=== PATIENT | female | born 1950 | race Caucasian/White ===

== ENCOUNTER 2018-06-22 12:28 | Inpatient (IN) ==
[2018-06-22 13:43] LABS: Baso # (Auto) 0.1 th/mm3 (0.0-0.2); Baso % (Auto) 2.9 % (0.0-2.0); Eos # (Auto) 0.3 th/mm3 (0.0-0.4); Hematocrit 40.4 % (35.0-46.0); Hemoglobin 13.2 gm/dL (11.6-15.3); Lymph # (Auto) 1.4 th/mm3 (1.0-4.8); Lymph % (Auto) 26.6 % (9.0-44.0); Mean Corpuscular HGB Conc 32.7 % (32.0-36.0); Mean Corpuscular Volume 79.6 fL (80.0-100.0); Mono # (Auto) 0.3 th/mm3 (0.0-0.9); Mono % (Auto) 5.4 % (0.0-8.0); Neut # (Auto) 3.1 th/mm3 (1.8-7.7); Neut % (Auto) 60.1 % (16.0-70.0); Platelet Count 252 th/mm3 (150-450); Red Blood Count 5.08 mil/mm3 (4.00-5.30); Red Cell Distribution Width 16.5 % (11.6-17.2); White Blood Count 5.1 th/mm3 (4.0-11.0)
[2018-06-22 14:02] LABS: Alanine Aminotransferase 22 U/L (10-53); Albumin 3.9 g/dL (3.4-5.0); Anion Gap 3 meq/L (5-15); Aspartate Aminotransferase 12 U/L (15-37); Blood Urea Nitrogen 14 mg/dL (7-18); Calcium 9.1 mg/dL (8.5-10.1); Carbon Dioxide 27.2 meq/L (21.0-32.0); Chloride 112 meq/L (98-107); Glomerular Filtration Rate 57 mL/min (>89); Glucose,Random 91 mg/dL (74-106); Potassium 4.3 meq/L (3.5-5.1); Sodium 142 meq/L (136-145)
[2018-06-22 14:03] LABS: Alkaline Phosphatase 106 U/L (45-117); Total Protein 7.7 g/dL (6.4-8.2)
--- NOTE | 2018-06-22 16:45 | ED ---
HPI General Chief Complaint: Psychiatric Symptoms Stated Complaint: Psych Screen Time Seen by Provider: 06/22/18 14:38 Source: patient Mode of arrival: ambulatory Limitations: no limitations History of Present Illness HPI Narrative: 67-year-old white female who presents emergency department on a voluntary basis at the recommendation of Dr. Mercer the psychiatrist. Patient has a history of schizoaffective disorder, obesity. Patient had contacted Dr. Mercer by phone and had advised him that she was having increased auditory and visual hallucination was becoming increasingly paranoid. She states that she has no intention on hurting herself or hurting anyone but has had intrusive thoughts telling her that she heard hurt herself. Patient states that she does have problems sleeping and concentrating due to the voices. She denies any toxic ingestions. She denies any recent illness or injury. Related Data Home Medications Medication Instructions Recorded Confirmed escitalopram oxalate [Lexapro] 10 mg PO DAILY 06/23/18 06/23/18 quetiapine [Seroquel] 300 mg PO HS 06/23/18 06/23/18 Allergies Allergy/AdvReac Type Severity Reaction Status Date / Time haloperidol Allergy Severe Unverified 07/10/17 13:52 Review of Systems ROS Unobtainable All other systems reviewed negative except as stated in [facility]PI [facility] Medical History Medical History Schizoaffective disorder (Acute) Anxiety (Acute) Depression (Acute) Social History Social History Substance History: No History of Abuse Second Hand Smoke Exposure: No Smoking Status: Never smoker How Often Do You Have a Drink Containing Alcohol: Never Recent Travel in [facility] within the Last 8 Weeks: No Recent Out of Country Travel within the Last 8 Weeks: No Exam Narrative Exam Narrative: GENERAL: Well-nourished, well-developed patient. SKIN: Warm and dry. HEAD: Normocephalic and atraumatic. EYES: No scleral icterus. No injection or drainage. ENT: No nasal drainage noted. Mucous membranes pink. Airway patent. NECK: Supple, trachea midline. Moves head freely without obvious discomfort. CARDIOVASCULAR: Regular rate and rhythm without murmurs, gallops, or rubs. RESPIRATORY: Breath sounds equal bilaterally. No accessory muscle use. GASTROINTESTINAL: Abdomen soft, non-tender, nondistended. EXTREMITIES: No cyanosis or edema. BACK: Nontender without obvious deformity. No CVA tenderness. Patient has a mobile nontender what appears to be lipoma to her right mid back. NEURO: Patient is alert and oriented. no sensorimotor deficits. Nonfocal. Normal speech. PSYCH: No delusions. Positive auditory and visual hallucinations. Course Initial Documented Vital Signs Temperature 97.7 F 06/22/18 12:32 Pulse Rate 78 06/22/18 12:32 Respiratory Rate 17 06/22/18 12:32 Blood Pressure 170/81 H 06/22/18 12:32 Pulse Oximetry 97 06/22/18 12:32 Last Documented Vital Signs Temperature 98.1 F 06/23/18 18:04 Pulse Rate 65 06/23/18 18:04 Respiratory Rate 17 06/23/18 18:04 Blood Pressure 156/73 H 06/23/18 17:55 Pulse Oximetry 94 L 06/23/18 18:04 Medical Decision Making MDM Narrative Medical decision making narrative: Routine laboratory tests have been sent for medical clearance. Patient is resting comfortable in examination room. Patient has been medically cleared. Differential Diagnosis Differential Diagnosis: MDM: High Differential diagnoses: Schizophrenia, schizoaffective disorder, bipolar, anxiety, depression, adjustment reaction, mood disorder NOS, ODD, depressive disorder NOS, psychosis NOS, substance induced mood disorder, infection, electrolyte abnormality, malingering. Mental health screening discussed with the patient. Psychiatric screen ordered. Lab Data Result diagrams: 06/22/18 13:28 06/22/18 13:28 Lab Results 06/22/18 06/22/18 06/22/18 Range/Units 13:28 13:28 18:05 WBC 5.1 (4.0-11.0) th/mm3 RBC 5.08 (4.00-5.30) mil/mm3 Hgb 13.2 (11.6-15.3) gm/dL Hct 40.4 (35.0-46.0) % MCV 79.6 L (80.0-100.0) fL MCH 26.0 L (27.0-34.0) pg MCHC 32.7 (32.0-36.0) % RDW 16.5 (11.6-17.2) % Plt Count 252 (150-450) th/mm3 MPV 8.0 (7.0-11.0) fL Neut % (Auto) 60.1 (16.0-70.0) % Lymph % (Auto) 26.6 (9.0-44.0) % [place] % (Auto) 5.4 (0.0-8.0) % Eos % (Auto) 5.0 H (0.0-4.0) % Baso % (Auto) 2.9 H (0.0-2.0) % Neut # (Auto) 3.1 (1.8-7.7) th/mm3 Lymph # (Auto) 1.4 (1.0-4.8) th/mm3 [place] # (Auto) 0.3 (0.0-0.9) th/mm3 Eos # (Auto) 0.3 (0.0-0.4) th/mm3 Baso # (Auto) 0.1 (0.0-0.2) th/mm3 WBC Differential . Differential Comment Auto diff final Sodium 142 (136-145) meq/L Potassium 4.3 (3.5-5.1) meq/L Chloride 112 H (98-107) meq/L Carbon Dioxide 27.2 (21.0-32.0) meq/L Anion Gap 3 L (5-15) meq/L BUN 14 (7-18) mg/dL Creatinine 0.98 (0.50-1.00) mg/dL Estimated GFR 57 L (>89) mL/min Random Glucose 91 (74-106) mg/dL Calcium 9.1 (8.5-10.1) mg/dL Total Bilirubin 0.3 (0.2-1.0) mg/dL AST 12 L (15-37) U/L ALT 22 (10-53) U/L Alkaline Phosphatase 106 (45-117) U/L Total Protein 7.7 (6.4-8.2) g/dL Albumin 3.9 (3.4-5.0) g/dL Urine Opiates Screen Neg (Neg) Ur Barbiturates Screen Neg (Neg) Ur Amphetamines Screen Neg (Neg) U Benzodiazepines Scrn Neg (Neg) Urine Cocaine Screen Neg (Neg) U Cannabinoids Screen Neg (Neg) Serum Alcohol Less than 3 (0-5) mg/dL Discharge Plan Discharge Disposition Patient Disposition: 01 Discharge Home Discharge Order Discharge Orders: Discharge Order (Routine); Ordered 06/23/18 Ordered By: Lonny Smith Discharge Details Diagnosis: Depression Physicians Team ED Provider: Yemi Ramsay ED Midlevel Provider: Lonny Smith Primary Care Provider: Jacob Bishop Attending Provider: Clifford Bobo Status ED Status: Left Department Discharge Information Discharge Date/Time: 06/23/18 17:22
[2018-06-22 19:15] LABS: Amphetamine Screen,Urine Neg (Neg); Barbiturate Screen,Urine Neg (Neg); Cannabinoid Screen,Urine Neg (Neg); Cocaine Screen,Urine Neg (Neg)
[2018-06-22 19:16] LABS: Opiate Screen,Urine Neg (Neg)
--- NOTE | 2018-06-23 10:58 | ED ---
HPI - Psych - General Source: patient Mode of arrival: ambulatory - History of Present Illness complaint: feels depressed, other (hearing command hallucinations and visual hallucinations) Duration: constant History of same: Yes Relieving factors: none Exacerbating factors: none - General Chief Complaint: Psychiatric Symptoms Stated Complaint: Psych Screen Time Seen by Provider: 06/22/18 14:38 - History of Present Illness HPI Narrative: Patient is a 67-year-old , female who comes in on a voluntary basis. She states that she is treated by Dr. Abdullahi at [facility]. She is currently taking Lexapro 10 mg and Seroquel 300 mg. She states she is here because she lives with her of 46 years and he has a lot of medical problems and she does not want him to see her in this condition. She states that she is has been experiencing command hallucinations and the voices are very harsh telling her to hurt others. She is also experienced some visual hallucinations pictures of her past childhood in addition to visions of monsters and visions from horror movies. She states that she feels like she is losing control and she is experiencing, " loss of her being." Chart reviewed and discussed with nursing staff. Patient is in room J- 104 of the emergency department. She is actively crying and is very difficult to console her. She is alert and oriented 4. Fund of knowledge is good. Motor and gait is normal. Remote and recent memory is intact. Insight and judgment is good. She endorses both auditory and visual hallucinations. She states that these hallucinations have been present in her life for the past 20 years but recently have gotten a lot worse and interfering with her quality of life. She has been under the care of psychiatry and taking Lexapro and Seroquel. She states that she only takes the Lexapro intermittently when she is feeling sad. Medical/surgical history: Patient has no allergies. Surgery on her bladder for small tumors that were removed. States no other medical history. 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 She had 4 children. Two twin girls who are 45 years old one lives [facility] and the other one lives in [place]. She has a son who is 42 who lives in [place]. Her and her lost a child at the age of 22 years old. Patient has a very good relationship with all of her children. 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 She graduated from high school and completed an associates degree in arts. 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 She enjoys baking, sewing, yard work and animals. Patient is at moderate risk for decompensation. She has agreed to a voluntary admission for assessment and medication management. Dx: Schizoaffective, Schizophrenia type (Tiny Ruiz) - Related Data Home Medications Medication Instructions Recorded Confirmed escitalopram oxalate [Lexapro] 10 mg PO DAILY 06/23/18 06/23/18 quetiapine [Seroquel] 300 mg PO HS 06/23/18 06/23/18 Allergies Allergy/AdvReac Type Severity Reaction Status Date / Time haloperidol Allergy Severe Unverified 07/10/17 13:52 Review of Systems All other systems reviewed negative except as stated in HPI [facility] - History History Provided By: Patient - Medical History Medical History: Medical History (Last Updated 06/22/18 @ 18:36 by Jazmin Casey RN) Schizoaffective disorder (Acute) Anxiety (Acute) Depression (Acute) - Tobacco History Second Hand Smoke Exposure: No Smoking Status: Never smoker - Alcohol History How Often Do You Have a Drink Containing Alcohol: Never - Substance Use History Substance History: No History of Abuse - Travel History Recent Travel in the [facility] Within the Last 8 Weeks: No Recent Travel Out of the Country Within the Last 8 Weeks: No - Immunization History Tetanus Immunization: Unsure Hx Influenza Vaccine This Season: No Psychiatric History - Psychiatric History Psychiatric Treatment History: History of Psychiatric Treatment, History of Hospitalization in a Psychiatric Facility - Psychiatric History Patient is under the care of Dr. Abdullahi at [facility]. She has had a long history of schizoaffective disorder. She presents today with active auditory and visual hallucinations. (Tiny Ruiz) Physical Exam - General Limitations: no limitations General appearance: alert - Head Head exam: atraumatic - Eye Eye exam: Present: normal appearance - ENT ENT exam: Present: normal exam - Neck Neck exam: Present: normal inspection Mental Status Examination Appearance: Appropriate, Disheveled (has not washed her hair in days ) Consciousness: Alert Orientation: x4 (crying, inconsolable ) Speech: Unremarkable Language: Adequate Fund of Knowledge: Adequate Attention and Concentration: Adequate Memory: Unremarkable Mood: Sad Affect: Flat, Blunt Thought Process & Associations: Intact Thought Content: Hallucinations Hallucination Type: Auditory, Visual Delusion Type: None Suicidal Ideation: No Suicidal Plan: No Suicidal Intention: No Homicidal Ideation: No Homicidal Plan: No Homicidal Intention: No Insight: Adequate Judgment: Adequate Initial Documented Vital Signs Temperature 97.7 F 06/22/18 12:32 Pulse Rate 78 06/22/18 12:32 Respiratory Rate 17 06/22/18 12:32 Blood Pressure 170/81 H 06/22/18 12:32 Pulse Oximetry 97 06/22/18 12:32 Last Documented Vital Signs Temperature 98.2 F 06/22/18 23:28 Pulse Rate 66 06/22/18 23:28 Respiratory Rate 17 06/22/18 23:28 Blood Pressure 167/81 H 06/22/18 23:28 Pulse Oximetry 97 06/22/18 23:28 MDM - Psych - Diagnosis (1) Schizo-affective schizophrenia Status: Acute - Medical Records Attestation: I reviewed the patient's medical records. - Lab Data Attestation: I reviewed the patient's lab results. Result diagrams: 06/22/18 13:28 06/22/18 13:28 - MDM Narrative Medical decision making narrative: Patient is a 67-year-old female who comes into the emergency department on a voluntary basis due to increased auditory and visual hallucinations. She states that she is under the care of Dr. Abdullahi at [facility] and prescribed Lexapro and Seroquel. She lives with her of 46 years and he has a lot of medical issues. She has many concerns about her current state while at home with her . She is crying inconsolably and elicits increase in auditory hallucinations. She states that the voices are telling her to do evil things and they will not stop. She also is experiencing visual hallucinations including pictures of her past and visions from a horror movie. She expresses concern about her dose of Seroquel because she sleeps excessively. Patient is moderate risk for decompensation. Will admit patient on a voluntary basis for further assessment and medication management. (Tiny Ruiz) - Lab Data Lab Results 06/22/18 06/22/18 06/22/18 Range/Units 13:28 13:28 18:05 WBC 5.1 (4.0-11.0) th/mm3 RBC 5.08 (4.00-5.30) mil/mm3 Hgb 13.2 (11.6-15.3) gm/dL Hct 40.4 (35.0-46.0) % MCV 79.6 L (80.0-100.0) fL MCH 26.0 L (27.0-34.0) pg MCHC 32.7 (32.0-36.0) % RDW 16.5 (11.6-17.2) % Plt Count 252 (150-450) th/mm3 MPV 8.0 (7.0-11.0) fL Neut % (Auto) 60.1 (16.0-70.0) % Lymph % (Auto) 26.6 (9.0-44.0) % [place] % (Auto) 5.4 (0.0-8.0) % Eos % (Auto) 5.0 H (0.0-4.0) % Baso % (Auto) 2.9 H (0.0-2.0) % Neut # (Auto) 3.1 (1.8-7.7) th/mm3 Lymph # (Auto) 1.4 (1.0-4.8) th/mm3 [place] # (Auto) 0.3 (0.0-0.9) th/mm3 Eos # (Auto) 0.3 (0.0-0.4) th/mm3 Baso # (Auto) 0.1 (0.0-0.2) th/mm3 WBC Differential . Differential Comment Auto diff final Sodium 142 (136-145) meq/L Potassium 4.3 (3.5-5.1) meq/L Chloride 112 H (98-107) meq/L Carbon Dioxide 27.2 (21.0-32.0) meq/L Anion Gap 3 L (5-15) meq/L BUN 14 (7-18) mg/dL Creatinine 0.98 (0.50-1.00) mg/dL Estimated GFR 57 L (>89) mL/min Random Glucose 91 (74-106) mg/dL Calcium 9.1 (8.5-10.1) mg/dL Total Bilirubin 0.3 (0.2-1.0) mg/dL AST 12 L (15-37) U/L ALT 22 (10-53) U/L Alkaline Phosphatase 106 (45-117) U/L Total Protein 7.7 (6.4-8.2) g/dL Albumin 3.9 (3.4-5.0) g/dL Urine Opiates Screen Neg (Neg) Ur Barbiturates Screen Neg (Neg) Ur Amphetamines Screen Neg (Neg) U Benzodiazepines Scrn Neg (Neg) Urine Cocaine Screen Neg (Neg) U Cannabinoids Screen Neg (Neg) Serum Alcohol Less than 3 (0-5) mg/dL
[2018-06-23] MEDS ORDERED: Aluminum/Magnesium/Simethacone Susp 30 ML UDC PO PRN (11:00)
[2018-06-23] MEDS ORDERED: Acetaminophen 325 MG Tablet PO PRN (11:00)
[2018-06-23] MEDS: Senna/Docusate Sodium 8.6/50 MG Tablet PO SCH (22:05)
[2018-06-24] MEDS: Senna/Docusate Sodium 8.6/50 MG Tablet PO SCH ×2 (09:29→21:27)
[2018-06-24 11:23] LABS: Calcium 9.1 mg/dL (8.5-10.1); Carbon Dioxide 28.2 meq/L (21.0-32.0); Potassium 3.8 meq/L (3.5-5.1)
[2018-06-24 11:25] LABS: Chol/HDL Ratio 4.06 Ratio; HDL Cholesterol 48.9 mg/dL (40.0-60.0)
--- NOTE | 2018-06-24 12:09 | P.CONIM ---
History of Present Illness Consult date: 06/24/18 Requesting Physician: Wayne Hansen Reason for Consult: Elevated BP Primary Care Provider: Jacob Bishop MD Family Provider: Jacob Bishop MD History of Present Illness: Mrs. 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 She follows with Dr. Abdullahi at [facility]. She is currently taking Lexapro 10 mg and Seroquel 300 mg. Pt was admitted to inpatient psychiatry under voluntary basis for visual and auditory hallucinations. This has reportedly been an issues intermittently for several years but it has become more of an issue recently. This is being managed by Psychiatry. The [facility] Hospitalist team was consulted to help with medical management of the pts BP. Her BP has fluctuated since admission yesterday with systolic as high as 170's. Her BP readings this morning were stable at 122/66. Pt has not required BP medications in the past. Past Medical History Schizoaffective d/o Papillary urothelial carcinoma bladder Past Surgical History Transurethral resection of bladder tumors on 01/09/14 and 03/22/14 Reported Medications Lexapro 10mg daily Seroquel 300mg qhs Family History Noncontributory Social History No reported EtOH or tobacco use Pt lives at home with her Pt has three living children two of which live locally. Review of Systems Constitutional: Denies chills, Denies fever(s), Denies weakness Ears, Nose, Mouth, and Throat: Denies hearing loss, Denies mouth lesions, Denies nasal congestion, Denies sinus pressure Cardiovascular: Denies chest pain, Denies shortness of breath Gastrointestinal: Denies abdominal pain, Denies constipation, Denies loose stools, Denies nausea, Denies vomiting Genitourinary: Denies urinary incontinence, Denies urinary urgency Musculoskeletal: Denies back pain, Denies neck pain Skin/Breast: Denies rash Neurologic: Denies abnormal movements, Denies abnormal speech, Denies tingling/ numbness/burning sensations Psychiatric: Reports depression, Reports hearing things others do not hear, Reports seeing things others do not see PMFSH - History History Provided By: Patient - Medical History Medical History: Medical History (Last Reviewed 06/27/18 @ 00:53 by Yemi Ramsay MD) Schizoaffective disorder (Chronic) Anxiety (Acute) Depression (Acute) - Tobacco History Second Hand Smoke Exposure: No Tobacco Use In Past 30 Days: No Smoking Status: Never smoker - Alcohol History How Often Do You Have a Drink Containing Alcohol: Never - Substance Use History Substance History: No History of Abuse - Travel History Recent Travel in the [place] Within the Last 8 Weeks: No Recent Travel Out of the Country Within the Last 8 Weeks: No - Immunization History Tetanus Immunization: Unsure Hx Influenza Vaccine This Season: No Medications and Allergies Allergies Allergy/AdvReac Type Severity Reaction Status Date / Time haloperidol Allergy Severe Extrapyramidal Verified 06/26/18 07:09 Syndrome Home Medications Medication Instructions Recorded Confirmed Type quetiapine 300 mg PO HS 06/27/18 06/27/18 History Active Medications: Active Medications Acetaminophen (Tylenol) 650 mg PO Q4H PRN PRN Reason: Pain 1-5 or Temp >101F Al Hydrox/Mg Hydrox/Simethicone (Mag-Al Plus Susp Liq) 30 ml PO Q6H PRN PRN Reason: DYSPEPSIA Diphenhydramine HCl (Benadryl) 50 mg PO HS PRN PRN Reason: INSOMNIA Last Admin: 06/23/18 22:03 Dose: 50 mg Quetiapine Fumarate (Seroquel) 200 mg PO HS [facility] Last Admin: 06/23/18 22:04 Dose: 200 mg Senna/Docusate Sodium (Reanna-Colace) 1 tab PO BID [facility] Last Admin: 06/24/18 09:29 Dose: Not Given Exam Vital signs: Vital Signs 06/23/18 11:58 06/23/18 17:00 06/23/18 17:55 Temperature 97.6 F 98.1 F Pulse Rate 66 65 96 H Respiratory Rate 16 17 Blood Pressure 140/66 170/82 H 156/73 H Pulse Oximetry 97 94 L 06/23/18 18:04 06/24/18 05:57 Temperature 98.1 F 97.7 F Pulse Rate 65 73 Respiratory Rate 17 16 Blood Pressure 122/56 L Pulse Oximetry 94 L 95 Intake & Output 06/23/18 06/24/18 06/24/18 18:59 06:59 18:59 Weight 99.7 kg 103.9 kg Other: Date of Last Bowel Movement 06/21/18 06/23/18 Weight On Admission 99.7 kg Narrative: GENERAL: NAD, awake and alert SKIN: Warm and dry. HEENT: Atraumatic. Normocephalic. Pupils equal and round. No scleral icterus. No injection or drainage. No nasal bleeding or discharge. Mucous membranes pink and moist. NECK: Trachea midline. CARDIO: Regular RESP: No accessory muscle use. Clear to auscultation. Breath sounds equal bilaterally. ABD: +BS, soft, non-tender, nondistended. EXT: Extremities without clubbing, cyanosis, or edema. No obvious deformities. NEURO: Awake and alert. No obvious cranial nerve deficits. Motor grossly within normal limits. Five out of 5 muscle strength in the arms and legs. Normal speech. Results - Labs CBC & Chem 7: 06/22/18 13:28 06/25/18 06:42 Labs: Laboratory Results - last 24 hr 06/24/18 10:30 Sodium 143 Potassium 3.8 Chloride 110 H Carbon Dioxide 28.2 Anion Gap 5 BUN 13 Creatinine 0.99 Estimated GFR 56 L Random Glucose 86 Calcium 9.1 Triglycerides 180 H Cholesterol 199 LDL Cholesterol, Calc 114 H HDL Cholesterol 48.9 Cholesterol/HDL Ratio 4.06 Assessment and Plan - Assessment (1) Schizoaffective disorder Code(s): F25.9 - Schizoaffective disorder, unspecified Status: Chronic Plan: Schizoaffective disorder Visual and auditory hallucinations - Pt has been admitted to inpatient psychiatry for management of the above stated issues - Management per Psych Elevated Blood pressure - Pt without any hx of HTN and her BP has fluctuated somewhat during this stay so far, likely situation, related to anxiety and heightened emotions. - Will continue to monitor BP trend - Add clonidine PRN (2) Elevated blood pressure, situational Code(s): R03.0 - Elevated blood-pressure reading, without diagnosis of hypertension Status: Acute - Attending Attestation Patient examined. Assessment and plan formulated with Sofia Marinelli PA-C. I agree with the above. (1) Schizoaffective disorder Qualifiers: Schizoaffective disorder type: bipolar Qualified Code(s): F25.0 - Schizoaffective disorder, bipolar type
[2018-06-24] MEDS ORDERED: Bisacodyl 10 MG Supp RECTAL PRN ×2 (13:21→13:30)
[2018-06-24] MEDS ORDERED: Aluminum/Magnesium/Simethacone Susp 30 ML UDC PO PRN (13:30)
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
[2018-06-24 16:32] LABS: Hemoglobin A1c 5.5 % (4.3-6.0)
[2018-06-24] MEDS ORDERED: Senna/Docusate Sodium 8.6/50 MG Tablet PO SCH (21:00)
[2018-06-25 07:50] LABS: Carbon Dioxide 26.6 meq/L (21.0-32.0); Potassium 3.7 meq/L (3.5-5.1)
[2018-06-25 07:53] LABS: Chol/HDL Ratio 3.79 Ratio; HDL Cholesterol 47.7 mg/dL (40.0-60.0)
[2018-06-25] MEDS: Senna/Docusate Sodium 8.6/50 MG Tablet PO SCH ×2 (10:43→21:13)
--- NOTE | 2018-06-25 16:00 | P.PNPSY ---
Subjective Remarks: Patient seen in her room with nurse, chart reviewed, patient said she slept better last night. Voices persist but the frequency and intensity are somewhat lower. We will increase a.m. Resporal 2 mg continue 4 PM and 1 mg Review of Systems All other systems reviewed negative except as stated in HPI Mental Status Examination Appearance: Appropriate Consciousness: Alert Orientation: x4 (crying, inconsolable ) Motor Activity: Normal gait Speech: Unremarkable Language: Adequate Fund of Knowledge: Adequate Attention and Concentration: Adequate Memory: Unremarkable Mood: Sad Affect: Other (Decreased range and intensity) Thought Process & Associations: Intact Thought Content: Hallucinations Hallucination Type: Auditory, Visual Delusion Type: None Suicidal Ideation: No Suicidal Plan: No Suicidal Intention: No Homicidal Ideation: No Homicidal Plan: No Homicidal Intention: No Insight: Adequate Judgment: Adequate Assessment and Plan - Assessment (1) Schizoaffective disorder Code(s): F25.9 - Schizoaffective disorder, unspecified Status: Chronic - Plan Plan: Patient continues psychotic though improving the voices are somewhat decreased in range and intensity. She medication adjustment above Justification for Continued Inpatient Stay: At this time patient would decompensate a place to a lower level of care Discharge Planning: Possible discharge tomorrow to Request Healthcare Surrogate/Guardian Advocate?: No (1) Schizoaffective disorder Qualifiers: Schizoaffective disorder type: depressive Qualified Code(s): F25.1 - Schizoaffective disorder, depressive type
[2018-06-25 18:21] LABS: Hemoglobin A1c 5.4 % (4.3-6.0)
[2018-06-26 06:18] VITALS: BP 149/63; PULSE 67; RESP 15; TEMP 98.1; O2SAT 98
[2018-06-26] MEDS: Senna/Docusate Sodium 8.6/50 MG Tablet PO SCH ×2 (09:34→09:36)
--- NOTE | 2018-06-26 12:35 | P.DSPSY ---
Psychiatry Discharge Summary Inpatient Psychiatric care?: Yes Advance Directives: No Mental Health Advance Directive: No Health Care Proxy: No - Admission Admission Date: June 23, 2018 10:59 - Admission Diagnosis (1) Schizoaffective disorder Code(s): F25.9 - Schizoaffective disorder, unspecified Brief History: Patient is a 67-year-old white female comes here voluntarily history of increased auditory and visual hallucinations becoming more more threatening intrusive both visits intensity and frequency. Leading to vague suicidal ideation. Patient denies any alcohol or drug use related to this. Patient does give a history of mental illness going back a number of years the of her grand mother and of a young child. That is 30+ years ago she has had 4-6 psychiatric hospitalizations since then. She is a patient through [facility]. It was being prescribed Seroquel 300 mg at bedtime and Lexapro 10 mg daily and extended period of time. She stopped Lexapro about a month ago after reading things in the Internet and seeing loose story about Lexapro. She complained of increased sedation with the Seroquel was in the ED yesterday it was decreased to 200 mg at at bedtime. 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 She also has recently had the of her pet dog and cat leaving her with 3 cats and 1 dog. Patient does deny any intent to kill herself or plan to kill herself. This time patient meets criteria for inpatient psychiatric hospitalization on a voluntary basis steps also noted some hypertension with this lady will have a hospitalist consult will us. We will continue her Seroquel at 200 mg at bedtime we will add Resporal 1 mg 8 AM and 4 PM. Hopeless be fairly short stay and can return her to her family follow-up [facility] outpatient Tobacco Use In Past 30 Days: No How Often Do You Have a Drink Containing Alcohol: Never Hospital Course: Patient's hospital course was uneventful, she showed compliance with medication from day 1. Her auditory hallucinations have gradually diminished until mother are quite faint. Patient denies suicidality homicidality voices or visions. Feels her depression is also lifting. She is excited about going home that she can go with her for family reunion this weekend. Patient able contract to do no harm patient does have appropriate follow-up psychiatrically through [facility] be discharged today with Rx 1 month - Discharge Discharge Date: 06/26/18 - Discharge Diagnosis (1) Schizoaffective disorder Code(s): F25.9 - Schizoaffective disorder, unspecified Status: Chronic Discharge Disposition: Home - Discharge Instructions Discharge Diet: Regular Diet Activities You Can Perform: Regular- No Restrictions - Discharge Time > 30 minutes Mental Status Examination Appearance: Appropriate Consciousness: Alert Orientation: x4 (crying, inconsolable ) Motor Activity: Normal gait Speech: Unremarkable Language: Adequate Fund of Knowledge: Adequate Attention and Concentration: Adequate Memory: Unremarkable Mood: Sad Affect: Other (Decreased range and intensity) Thought Process & Associations: Intact Thought Content: Hallucinations Hallucination Type: Auditory, Visual Delusion Type: None Suicidal Ideation: No Suicidal Plan: No Suicidal Intention: No Homicidal Ideation: No Homicidal Plan: No Homicidal Intention: No Insight: Adequate Judgment: Adequate Discharge/Advance Care Plan - Results Vital Signs: Last Vital Signs Temp 98.1 F 06/26/18 06:17 Pulse 67 06/26/18 06:17 Resp 15 06/26/18 06:17 BP 149/63 H 06/26/18 06:17 Pulse Ox 98 06/26/18 06:17 Lab Results: Abnormal Lab Results 06/25/18 06:42 Hemoglobin A1c 5.4 Laboratory Results Hemoglobin A1c 5.4 % (4.3-6.0) 06/25/18 06:42 Triglycerides 130 mg/dL (42-150) 06/25/18 06:42 Cholesterol 181 mg/dL (120-200) 06/25/18 06:42 LDL Cholesterol, Calc 107 mg/dL (0-99) H 06/25/18 06:42 HDL Cholesterol 47.7 mg/dL (40.0-60.0) 06/25/18 06:42 Summary of Procedures: None done Pending Results: None - Medications Number of antipsychotic medications at discharge: 1 - Discharge Care Plan Goals to Promote Your Health: * To prevent worsening of your condition and complications * To maintain your health at the optimal level Directions to Meet Your Goals: Take your medications as prescribed Follow your dietary instruction Follow activity as directed Keep your appointments as scheduled Take your immunizations and boosters as scheduled If your symptoms worsen call your PCP, if no PCP go to Urgent Care Center or Emergency Room For 18/06 questions related to your inpatient stay or results of tests pending at discharge, please contact Dr. Wayne Hansen MD at Smoking is Dangerous to Your Health. Avoid second hand smoking (1) Schizoaffective disorder Qualifiers: Schizoaffective disorder type: depressive Qualified Code(s): F25.1 - Schizoaffective disorder, depressive type (1) Schizoaffective disorder Qualifiers: Schizoaffective disorder type: depressive Qualified Code(s): F25.1 - Schizoaffective disorder, depressive type
== END 2018-06-26 15:10 | disposition home or self-care (01) ==
LOC: NEPJ 12:28 → NEDA 06-23 10:59 → H260 06-23 16:39
PROVIDERS: ADMIT Psychiatry & Neurology Psychiatry; ATTEND Psychiatry & Neurology Psychiatry

== ENCOUNTER 2018-06-26 23:42 | Observation (INO) ==
[2018-06-27] MEDS ORDERED: Sod Chloride 0.9% Inj 1,000 ML IV.SIG ONE (00:47)
--- NOTE | 2018-06-27 00:51 | ED ---
HPI General Chief complaint: Psychiatric Symptoms Stated complaint: medcial Time Seen by Provider: 06/27/18 00:47 Source: patient and family Mode of arrival: ambulatory Limitations: no limitations History of Present Illness HPI narrative: 67-year-old female patient with history of schizophrenia, bipolar disorder, admitted to psychiatry and released yesterday, presents back to the ER today with because she has been hearing voices, is not able to sleep, and had taken an overdose of her quiet pain to try to sleep. She states that she took 3 tablets of her quiets pain 300 mg tablets. She states that she is only supposed to take 2. She states that she is now having some intermittent chest discomfort, palpitations, hearing voices. Related Data Home Medications Medication Instructions Recorded Confirmed quetiapine 300 mg PO HS 06/27/18 06/27/18 Previous Rx's Medication Instructions Recorded escitalopram oxalate [Lexapro] 10 mg PO DAILY #30 tab 06/26/18 quetiapine 200 mg PO HS #60 tab 06/26/18 risperidone [Risperdal] 2 mg PO DAILY@ #60 tab 06/26/18 Allergies Allergy/AdvReac Type Severity Reaction Status Date / Time haloperidol Allergy Severe Extrapyramidal Verified 06/26/18 07:09 Syndrome Review of Systems Except as stated in HPI: all other systems reviewed are negative [facility] Medical History Medical History Schizoaffective disorder (Chronic) Anxiety (Acute) Depression (Acute) Surgical History Surgical History No history of previous surgery (Acute) Social History Social History Substance History: No History of Abuse Second Hand Smoke Exposure: No Smoking Status: Never smoker How Often Do You Have a Drink Containing Alcohol: Never Recent Travel in [facility] within the Last 8 Weeks: No Recent Out of Country Travel within the Last 8 Weeks: No Immunization History Tetanus Immunization: Never Vaccinated Hx Influenza Vaccine This Season: No Exam Narrative Exam Narrative: GENERAL: Well-developed middle-age female patient currently and mild to moderate distress. Awake and oriented 3. SKIN: Focused skin assessment warm/dry. HEAD: Atraumatic. Normocephalic. EYES: Pupils equal and round. No scleral icterus. No injection or drainage. ENT: No nasal bleeding or discharge. Mucous membranes pink and moist. NECK: Trachea midline. No JVD. CARDIOVASCULAR: Regular rate and rhythm. No murmur appreciated. RESPIRATORY: No accessory muscle use. Clear to auscultation. Breath sounds equal bilaterally. GASTROINTESTINAL: Abdomen soft, non-tender, nondistended. Hepatic and splenic margins not palpable. MUSCULOSKELETAL: No obvious deformities. No clubbing. No cyanosis. No edema. NEUROLOGICAL: Awake and alert. No obvious cranial nerve deficits. Motor grossly within normal limits. Normal speech. PSYCHIATRIC: Appropriate mood and flat affect; insight and judgment poor. Course Hospital Course: Patient's EKG shows elongated QTc. It is uncertain whether she has had this before, I do not have comparison EKGs. Patient complains of chest discomfort, and apparently is symptomatic from the overdose. Case had been discussed with poison control who recommends every 2 EKGs for further evaluation and observation. Lab work was otherwise unremarkable. We did not see any signs of coingestions. My plan would be to admit the patient for further treatment. Case was discussed with Dr. Carmichael who states the patient can be admitted to Dr. Villalobos service. Initial Documented Vital Signs Temperature 97.3 F L 06/27/18 00:31 Pulse Rate 103 H 06/27/18 00:31 Respiratory Rate 18 06/27/18 00:31 Blood Pressure 157/85 H 06/27/18 00:31 Pulse Oximetry 97 06/27/18 00:31 Last Documented Vital Signs Temperature 97.3 F L 06/27/18 00:31 Pulse Rate 98 H 06/27/18 00:59 Respiratory Rate 18 06/27/18 00:58 Blood Pressure 174/79 H 06/27/18 00:58 Pulse Oximetry 96 06/27/18 00:59 Medical Decision Making Differential Diagnosis Differential Diagnosis: Worsening psychosis versus medication side effect versus dysrhythmias versus electrolyte abnormalities Lab Data Result diagrams: 06/27/18 00:50 06/27/18 00:50 Lab Results 06/27/18 06/27/18 06/27/18 Range/Units 00:50 00:50 00:50 WBC 8.1 (4.0-11.0) th/mm3 RBC 5.18 (4.00-5.30) mil/mm3 Hgb 13.6 (11.6-15.3) gm/dL Hct 41.7 (35.0-46.0) % MCV 80.4 (80.0-100.0) fL MCH 26.3 L (27.0-34.0) pg MCHC 32.7 (32.0-36.0) % RDW 16.5 (11.6-17.2) % Plt Count 245 (150-450) th/mm3 MPV 8.3 (7.0-11.0) fL Neut % (Auto) 74.3 H (16.0-70.0) % Lymph % (Auto) 16.9 (9.0-44.0) % [place] % (Auto) 6.0 (0.0-8.0) % Eos % (Auto) 1.8 (0.0-4.0) % Baso % (Auto) 1.0 (0.0-2.0) % Neut # (Auto) 6.0 (1.8-7.7) th/mm3 Lymph # (Auto) 1.4 (1.0-4.8) th/mm3 [place] # (Auto) 0.5 (0.0-0.9) th/mm3 Eos # (Auto) 0.1 (0.0-0.4) th/mm3 Baso # (Auto) 0.1 (0.0-0.2) th/mm3 WBC Differential . Differential Comment Auto diff final Sodium 142 (136-145) meq/L Potassium 3.6 (3.5-5.1) meq/L Chloride 108 H (98-107) meq/L Carbon Dioxide 26.2 (21.0-32.0) meq/L Anion Gap 8 (5-15) meq/L BUN 13 (7-18) mg/dL Creatinine 0.90 (0.50-1.00) mg/dL Estimated GFR 63 L (>89) mL/min Random Glucose 114 H (74-106) mg/dL Calcium 9.4 (8.5-10.1) mg/dL Total Bilirubin 0.3 (0.2-1.0) mg/dL AST 16 (15-37) U/L ALT 22 (10-53) U/L Alkaline Phosphatase 110 (45-117) U/L Troponin I (0.02-0.05) ng/mL Total Protein 8.3 H D (6.4-8.2) g/dL Albumin 4.3 (3.4-5.0) g/dL Salicylates Less than 1.7 L (2.8-20.0) mg/dL Urine Opiates Screen (Neg) Acetaminophen Less than 2.0 L (10.0-30.0) mcg/mL Ur Barbiturates Screen (Neg) Ur Amphetamines Screen (Neg) U Benzodiazepines Scrn (Neg) Urine Cocaine Screen (Neg) U Cannabinoids Screen (Neg) 06/27/18 06/27/18 Range/Units 00:50 01:15 WBC (4.0-11.0) th/mm3 RBC (4.00-5.30) mil/mm3 Hgb (11.6-15.3) gm/dL Hct (35.0-46.0) % MCV (80.0-100.0) fL MCH (27.0-34.0) pg MCHC (32.0-36.0) % RDW (11.6-17.2) % Plt Count (150-450) th/mm3 MPV (7.0-11.0) fL Neut % (Auto) (16.0-70.0) % Lymph % (Auto) (9.0-44.0) % [place] % (Auto) (0.0-8.0) % Eos % (Auto) (0.0-4.0) % Baso % (Auto) (0.0-2.0) % Neut # (Auto) (1.8-7.7) th/mm3 Lymph # (Auto) (1.0-4.8) th/mm3 [place] # (Auto) (0.0-0.9) th/mm3 Eos # (Auto) (0.0-0.4) th/mm3 Baso # (Auto) (0.0-0.2) th/mm3 WBC Differential Differential Comment Sodium (136-145) meq/L Potassium (3.5-5.1) meq/L Chloride (98-107) meq/L Carbon Dioxide (21.0-32.0) meq/L Anion Gap (5-15) meq/L BUN (7-18) mg/dL Creatinine (0.50-1.00) mg/dL Estimated GFR (>89) mL/min Random Glucose (74-106) mg/dL Calcium (8.5-10.1) mg/dL Total Bilirubin (0.2-1.0) mg/dL AST (15-37) U/L ALT (10-53) U/L Alkaline Phosphatase (45-117) U/L Troponin I Less than 0.02 L (0.02-0.05) ng/mL Total Protein (6.4-8.2) g/dL Albumin (3.4-5.0) g/dL Salicylates (2.8-20.0) mg/dL Urine Opiates Screen Neg (Neg) Acetaminophen (10.0-30.0) mcg/mL Ur Barbiturates Screen Neg (Neg) Ur Amphetamines Screen Neg (Neg) U Benzodiazepines Scrn Neg (Neg) Urine Cocaine Screen Neg (Neg) U Cannabinoids Screen Neg (Neg) Discharge Plan Discharge Details Anticipated Discharge Date: 06/27/18 Physicians Team ED Provider: Yemi Ramsay Primary Care Provider: Jacob Bishop Rxs /Orders / Referrals /Forms Prescriptions: No Action quetiapine 300 mg Tablet 300 mg PO HS RF: 0 quetiapine 200 mg Tablet 200 mg PO HS Qty: 60 RF: 0 risperidone [Risperdal] 1 mg Tablet 2 mg PO DAILY@08,16 Qty: 60 RF: 0 escitalopram oxalate [Lexapro] 10 mg Tablet 10 mg PO DAILY Qty: 30 RF: 0 Discharge Interventions Interventions: Vital Signs Last Done: 06/27/18 00:58 Status ED Status: With Doctor
[2018-06-27 00:59] LABS: Baso # (Auto) 0.1 th/mm3 (0.0-0.2); Eos # (Auto) 0.1 th/mm3 (0.0-0.4); Eos % (Auto) 1.8 % (0.0-4.0); Hematocrit 41.7 % (35.0-46.0); Hemoglobin 13.6 gm/dL (11.6-15.3); Lymph # (Auto) 1.4 th/mm3 (1.0-4.8); Lymph % (Auto) 16.9 % (9.0-44.0); Mean Corpuscular HGB Conc 32.7 % (32.0-36.0); Mean Corpuscular Hemoglobin 26.3 pg (27.0-34.0); Mean Corpuscular Volume 80.4 fL (80.0-100.0); Mean Platelet Volume 8.3 fL (7.0-11.0); Mono # (Auto) 0.5 th/mm3 (0.0-0.9); Neut % (Auto) 74.3 % (16.0-70.0); Platelet Count 245 th/mm3 (150-450); Red Blood Count 5.18 mil/mm3 (4.00-5.30); Red Cell Distribution Width 16.5 % (11.6-17.2); White Blood Count 8.1 th/mm3 (4.0-11.0)
[2018-06-27 01:17] LABS: Albumin 4.3 g/dL (3.4-5.0); Anion Gap 8 meq/L (5-15); Aspartate Aminotransferase 16 U/L (15-37); Blood Urea Nitrogen 13 mg/dL (7-18); Calcium 9.4 mg/dL (8.5-10.1); Carbon Dioxide 26.2 meq/L (21.0-32.0); Chloride 108 meq/L (98-107); Glomerular Filtration Rate 63 mL/min (>89); Glucose,Random 114 mg/dL (74-106); Potassium 3.6 meq/L (3.5-5.1); Sodium 142 meq/L (136-145)
[2018-06-27 01:20] LABS: Alanine Aminotransferase 22 U/L (10-53); Alkaline Phosphatase 110 U/L (45-117); Total Protein 8.3 g/dL (6.4-8.2)
[2018-06-27 01:38] LABS: Amphetamine Screen,Urine Neg (Neg); Barbiturate Screen,Urine Neg (Neg); Cannabinoid Screen,Urine Neg (Neg); Cocaine Screen,Urine Neg (Neg); Opiate Screen,Urine Neg (Neg)
--- NOTE | 2018-06-27 09:30 | P.HP ---
<Myranda Machuca W - Last Filed: 06/27/18 12:24> History of Present Illness Primary Care Physician: Jacob Bishop MD History of Present Illness: Mrs. 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 Patient was recent;y admitted to in [facility] from 06/23/18 and discharged 06/26/18. Patient presents back to the ER 06/27/18 with because she has been hearing voices, is not able to sleep, and had taken an overdose of her quiet pain to try to sleep. She states that she took 3 tablets of her Seroquel 300 mg tablets. She states that she is only supposed to take 2. Per patient was having some intermittent chest discomfort on arrival to the ER. Patient now denies chest pain. She reports that she feels much better than when she came into the hospital. Patient reports feeling fatigued but offers no other complaints at this time. Past Medical History Schizoaffective d/o Papillary urothelial carcinoma bladder Past Surgical History Transurethral resection of bladder tumors on 01/09/14 and 03/22/14 Reported Medications Lexapro 10mg daily Seroquel 300mg qhs Family History Noncontributory Social History No reported EtOH or tobacco use Pt lives at home with her Pt has three living children two of which live locally. - Diagnosis (1) Schizoaffective disorder Review of Systems unobtainable due to mental status PMFSH - History History Provided By: Patient, Medical Record - Medical History Medical History: Medical History (Last Reviewed 06/27/18 @ 00:53 by Yemi Ramsay MD) Schizoaffective disorder (Chronic) Anxiety (Acute) Depression (Acute) - Surgical History Surgical History: Surgical History (Last Reviewed 06/27/18 @ 00:53 by Yemi Ramsay MD) No history of previous surgery - Tobacco History Second Hand Smoke Exposure: Yes Smoking Status: Never smoker - Alcohol History How Often Do You Have a Drink Containing Alcohol: Never - Substance Use History Substance History: No History of Abuse - Travel History Recent Travel in the [place] Within the Last 8 Weeks: No Recent Travel Out of the Country Within the Last 8 Weeks: No - Immunization History Tetanus Immunization: Never Vaccinated Hx Influenza Vaccine This Season: No Medications and Allergies Allergies Allergy/AdvReac Type Severity Reaction Status Date / Time haloperidol Allergy Severe Extrapyramidal Verified 06/26/18 07:09 Syndrome Home Medications Medication Instructions Recorded Confirmed Type quetiapine 300 mg PO HS 06/27/18 06/27/18 History Exam Vital signs: Vital Signs 06/27/18 00:31 06/27/18 00:58 06/27/18 00:59 Temperature 97.3 F L Pulse Rate 103 H 97 H 98 H Respiratory Rate 18 18 Blood Pressure 157/85 H 174/79 H Pulse Oximetry 97 95 96 06/27/18 03:36 06/27/18 07:19 Temperature 98.2 F 98.8 F Pulse Rate 89 83 Respiratory Rate 17 18 Blood Pressure 163/74 H 168/82 H Pulse Oximetry 96 97 Intake & Output 06/26/18 06/27/18 06/27/18 18:59 06:59 18:59 Intake Total 1000 / 1000 Balance 1000 / 1000 Weight 104.326 kg Intake: IV 1000 / 1000 NS Inj 1,000 ML @ Wide Open IV. 1000 / 1000 SIG BOLUS ONE Rx#:[id number] Narrative: GENERAL: NAD, awake and alert SKIN: Warm and dry. HEENT: Atraumatic. Normocephalic. Pupils equal and round. No scleral icterus. No injection or drainage. No nasal bleeding or discharge. Mucous membranes pink and moist. NECK: Trachea midline. CARDIO: Regular RESP: No accessory muscle use. Clear to auscultation. Breath sounds equal bilaterally. ABD: +BS, soft, non-tender, nondistended. EXT: Extremities without clubbing, cyanosis, or edema. No obvious deformities. NEURO: No obvious cranial nerve deficits. Motor grossly within normal limits. Five out of 5 muscle strength in the arms and legs. Normal speech. Results - Labs CBC & Chem 7: 06/27/18 00:50 06/27/18 00:50 Labs: Laboratory Results - last 24 hr 06/27/18 06/27/18 06/27/18 00:50 00:50 00:50 WBC 8.1 RBC 5.18 Hgb 13.6 Hct 41.7 MCV 80.4 MCH 26.3 L MCHC 32.7 RDW 16.5 Plt Count 245 MPV 8.3 Neut % (Auto) 74.3 H Lymph % (Auto) 16.9 [place] % (Auto) 6.0 Eos % (Auto) 1.8 Baso % (Auto) 1.0 Neut # (Auto) 6.0 Lymph # (Auto) 1.4 [place] # (Auto) 0.5 Eos # (Auto) 0.1 Baso # (Auto) 0.1 WBC Differential . Differential Comment Auto diff final Sodium 142 Potassium 3.6 Chloride 108 H Carbon Dioxide 26.2 Anion Gap 8 BUN 13 Creatinine 0.90 Estimated GFR 63 L Random Glucose 114 H Calcium 9.4 Total Bilirubin 0.3 AST 16 ALT 22 Alkaline Phosphatase 110 Troponin I Total Protein 8.3 H D Albumin 4.3 Salicylates Less than 1.7 L Urine Opiates Screen Acetaminophen Less than 2.0 L Ur Barbiturates Screen Ur Amphetamines Screen U Benzodiazepines Scrn Urine Cocaine Screen U Cannabinoids Screen 06/27/18 06/27/18 00:50 01:15 WBC RBC Hgb Hct MCV MCH MCHC RDW Plt Count MPV Neut % (Auto) Lymph % (Auto) [place] % (Auto) Eos % (Auto) Baso % (Auto) Neut # (Auto) Lymph # (Auto) [place] # (Auto) Eos # (Auto) Baso # (Auto) WBC Differential Differential Comment Sodium Potassium Chloride Carbon Dioxide Anion Gap BUN Creatinine Estimated GFR Random Glucose Calcium Total Bilirubin AST ALT Alkaline Phosphatase Troponin I Less than 0.02 L Total Protein Albumin Salicylates Urine Opiates Screen Neg Acetaminophen Ur Barbiturates Screen Neg Ur Amphetamines Screen Neg U Benzodiazepines Scrn Neg Urine Cocaine Screen Neg U Cannabinoids Screen Neg Caprini VTE Risk Assessment Caprini VTE Risk Assessment: No/Low Risk (score <= 1) Caprini Risk Assessment Model: Point Value = 1 Point Value = 2 Point Value = 3 Point Value = 5 Age 41-60 Minor surgery BMI > 25 kg/m2 Swollen legs Varicose veins or History of unexplained or recurrent spontaneous Oral contraceptives or hormone replacement Sepsis (< 1 month) Serious lung disease, including pneumonia (< 1 month) Abnormal pulmonary function Acute myocardial infarction Congestive heart failure (< 1 month) History of inflammatory bowel disease Medical patient at bed rest Age 61-74 Arthroscopic surgery Major open surgery (> 45 min) Laparoscopic surgery (> 45 min) Malignancy Confined to bed (> 72 hours) Immobilizing plaster cast Central venous access Age >= 75 History of VTE Family history of VTE Factor V Leiden Prothrombin [id number] Lupus anticoagulant Anticardiolipin antibodies Elevated serum homocysteine Heparin-induced thrombocytopenia Other congenital or acquired thrombophilia Stroke (< 1 month) Elective arthroplasty Hip, pelvis, or leg fracture Acute spinal cord injury (< 1 month) Prophylaxis Regimen: Total Risk Factor Score Risk Level Prophylaxis Regimen 0-1 Low Early ambulation 2 Moderate Order ONE of the following: *Sequential Compression Device (SCD) *Heparin 5000 units SQ BID 3-4 Higher Order ONE of the following medications: *Heparin 5000 units SQ TID *Enoxaparin/Lovenox 40 mg SQ daily (WT < 150 kg, CrCl > 30 mL/min) *Enoxaparin/Lovenox 30 mg SQ daily (WT < 150 kg, CrCl > 10-29 mL/min) *Enoxaparin/Lovenox 30 mg SQ BID (WT < 150 kg, CrCl > 30 mL/min) AND/OR *Sequential Compression Device (SCD) 5 or more Highest Order ONE of the following medications: *Heparin 5000 units SQ TID (Preferred with Epidurals) *Enoxaparin/Lovenox 40 mg SQ daily (WT < 150 kg, CrCl > 30 mL/min) *Enoxaparin/Lovenox 30 mg SQ daily (WT < 150 kg, CrCl > 10-29 mL/min) *Enoxaparin/Lovenox 30 mg SQ BID (WT < 150 kg, CrCl > 30 mL/min) AND *Sequential Compression Device (SCD) Assessment and Plan - Assessment (1) Schizoaffective disorder Code(s): F25.9 - Schizoaffective disorder, unspecified Status: Chronic Plan: Mrs. 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 Patient was recent;y admitted to in [facility] from 06/23/18 and discharged 06/26/18. Patient presents back to the ER 06/27/18 with because she has been hearing voices, is not able to sleep, and had taken an overdose of her quiet pain to try to sleep. She states that she took 3 tablets of her Seroquel 300 mg tablets. She states that she is only supposed to take 2. She states that she is now having some intermittent chest discomfort, palpitations, hearing voices. Medication overdose - Poison control was notified by the ER provider who recommended every 2 EKGs for further evaluation and observation - Patient took 3 tablets of her Seroquel 300 mg tablets - continuous telemetry - serial EKGs reviewed - initial EKG 06/27/18 0050 reveals SR with Qtc 433 with invertion in lead III - repeat EKG 06/27/18 0300 reveals SR with Qtc [address] changes - repeat EKG 06/27/18 0500 reveals SR with Qtc [address] changes Chest pain - resolved - has resolved and is likely related to Seroquel OD - troponin < 0.02 x 2 12 hours apart Schizoaffective disorder Visual and auditory hallucinations -Consult psychiatry for evaluation and medication recommendations - patient may require further in patient psychiatric stay, will defer that decision to psych Elevated Blood pressure - add Procardia XL 30 mg daily - recheck BP in 1 hour Plan to DC home once cleared by psych and BP improved <Musa Villalobos - Last Filed: 07/16/18 09:42> History of Present Illness Primary Care Physician: Jacob Bishop MD - Diagnosis (1) Schizoaffective disorder [facility] - Medical History Medical History: Medical History (Last Reviewed 06/27/18 @ 00:53 by Yemi Ramsay MD) Schizoaffective disorder (Chronic) Anxiety (Acute) Depression (Acute) - Surgical History Surgical History: Surgical History (Last Reviewed 06/27/18 @ 00:53 by Yemi Ramsay MD) No history of previous surgery Results - Labs CBC & Chem 7: 06/27/18 00:50 06/27/18 00:50 Caprini VTE Risk Assessment Caprini Risk Assessment Model: Point Value = 1 Point Value = 2 Point Value = 3 Point Value = 5 Age 41-60 Minor surgery BMI > 25 kg/m2 Swollen legs Varicose veins or History of unexplained or recurrent spontaneous Oral contraceptives or hormone replacement Sepsis (< 1 month) Serious lung disease, including pneumonia (< 1 month) Abnormal pulmonary function Acute myocardial infarction Congestive heart failure (< 1 month) History of inflammatory bowel disease Medical patient at bed rest Age 61-74 Arthroscopic surgery Major open surgery (> 45 min) Laparoscopic surgery (> 45 min) Malignancy Confined to bed (> 72 hours) Immobilizing plaster cast Central venous access Age >= 75 History of VTE Family history of VTE Factor V Leiden Prothrombin [id number] Lupus anticoagulant Anticardiolipin antibodies Elevated serum homocysteine Heparin-induced thrombocytopenia Other congenital or acquired thrombophilia Stroke (< 1 month) Elective arthroplasty Hip, pelvis, or leg fracture Acute spinal cord injury (< 1 month) Prophylaxis Regimen: Total Risk Factor Score Risk Level Prophylaxis Regimen 0-1 Low Early ambulation 2 Moderate Order ONE of the following: *Sequential Compression Device (SCD) *Heparin 5000 units SQ BID 3-4 Higher Order ONE of the following medications: *Heparin 5000 units SQ TID *Enoxaparin/Lovenox 40 mg SQ daily (WT < 150 kg, CrCl > 30 mL/min) *Enoxaparin/Lovenox 30 mg SQ daily (WT < 150 kg, CrCl > 10-29 mL/min) *Enoxaparin/Lovenox 30 mg SQ BID (WT < 150 kg, CrCl > 30 mL/min) AND/OR *Sequential Compression Device (SCD) 5 or more Highest Order ONE of the following medications: *Heparin 5000 units SQ TID (Preferred with Epidurals) *Enoxaparin/Lovenox 40 mg SQ daily (WT < 150 kg, CrCl > 30 mL/min) *Enoxaparin/Lovenox 30 mg SQ daily (WT < 150 kg, CrCl > 10-29 mL/min) *Enoxaparin/Lovenox 30 mg SQ BID (WT < 150 kg, CrCl > 30 mL/min) AND *Sequential Compression Device (SCD) Assessment and Plan - Assessment (1) Schizoaffective disorder Code(s): F25.9 - Schizoaffective disorder, unspecified Status: Chronic - Attending Attestation Patient examined. Assessment and plan formulated with Myranda FULLER I agree with the above. <Musa Villalobos - Last Filed: 07/16/18 09:42> (1) Schizoaffective disorder Qualifiers: Schizoaffective disorder type: bipolar Qualified Code(s): F25.0 - Schizoaffective disorder, bipolar type
--- NOTE | 2018-06-27 14:25 | P.CONPSY ---
Provisional Diagnosis Admission Date: June 27, 2018 01:59 [place].: Schizoaffective disorder, bipolar History of Present Illness Service: ER Primary Care Provider: Jacob Bishop MD Family Provider: Jacob Bishop MD History of Present Illness: The patient is a 67-year-old woman, domiciled in [place] with her , unemployed, with psychiatric history schizoaffective disorder, multiple psychiatric admissions, she was just discharged from psychiatry yesterday, she was in [facility] under the care of Dr. 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 Patient was recent;y admitted to in [facility] from 06/23/18 and discharged 06/26/18. Patient presents back to the ER 06/27/18 with because she has been hearing voices , is not able to sleep, and had taken an overdose of her quiet pain to try to sleep. She states that she took 3 tablets of her Seroquel 300 mg tablets. She states that she is only supposed to take 2. Per patient was having some intermittent chest discomfort on arrival to the ER. Patient now denies chest pain. Patient was consulted to psychiatry to address a potential suicide attempt. From Dr. Hansen's discharge summary just : patient's hospital course was uneventful, she showed compliance with medication from day 1. Her auditory hallucinations have gradually diminished until mother are quite faint. Patient denies suicidality homicidality voices or visions. Feels her depression is also lifting. She is excited about going home that she can go with her for family reunion this weekend. Patient able contract to do no harm patient does have appropriate follow-up psychiatrically through [facility] be discharged today with Rx 1 month On my psychiatric evaluation I find a patient that is calm, cooperative, stated that she feels much better. The patient clarifies that she was not tried to commit suicide or overdose, she is wanted to take 1 extra pill of Seroquel to sleep better. The patient denies any mood symptoms, denies depression, denies anhedonia, she denies anxiety, denies dao and psychosis, she denies suicidal enemas ideation, she denies visual and auditory hallucinations. The patient is fully oriented 3, logical, coherent and relevant. The patient states that she understand that she did run, but she is willing to continue her recommendations , and take medications as prescribed. [facility] - History History Provided By: Patient, Medical Record - Medical History Medical History: Medical History (Last Reviewed 06/27/18 @ 00:53 by Yemi Ramsay MD) Schizoaffective disorder (Chronic) Anxiety (Acute) Depression (Acute) - Surgical History Surgical History: Surgical History (Last Reviewed 06/27/18 @ 00:53 by Yemi Ramsay MD) No history of previous surgery - Tobacco History Second Hand Smoke Exposure: Yes Smoking Status: Never smoker - Alcohol History How Often Do You Have a Drink Containing Alcohol: Never - Substance Use History Substance History: No History of Abuse - Travel History Recent Travel in the [facility] Within the Last 8 Weeks: No Recent Travel Out of the Country Within the Last 8 Weeks: No - Immunization History Tetanus Immunization: Never Vaccinated Hx Influenza Vaccine This Season: No Medications and Allergies Active Medications: Active Medications Al Hydroxide/Mg Hydroxide (Milk Of Rylee Rincon) 30 ml PO Q12H PRN PRN Reason: Mild Constipation Nifedipine (Procardia Xl) 30 mg PO DAILY JUAN C Last Admin: 06/27/18 12:20 Dose: 30 mg Senna/Docusate Sodium (Reanna-Colace) 1 tab PO BID [facility] Allergies Allergy/AdvReac Type Severity Reaction Status Date / Time haloperidol Allergy Severe Extrapyramidal Verified 06/26/18 07:09 Syndrome Home Medications Medication Instructions Recorded Confirmed Type quetiapine 300 mg PO 06/27/18 06/27/18 History Exam Vital signs: Vital Signs 06/27/18 00:31 06/27/18 00:58 06/27/18 00:59 Temperature 97.3 F L Pulse Rate 103 H 97 H 98 H Respiratory Rate 18 18 Blood Pressure 157/85 H 174/79 H Pulse Oximetry 97 95 96 06/27/18 03:36 06/27/18 07:19 06/27/18 12:00 Temperature 98.2 F 98.8 F 98.8 F Pulse Rate 89 83 71 Respiratory Rate 17 18 18 Blood Pressure 163/74 H 168/82 H 159/78 H Pulse Oximetry 96 97 95 Intake & Output 06/26/18 06/27/18 06/27/18 18:59 06:59 18:59 Intake Total 1000 / 1000 Balance 1000 / 1000 Weight 104.326 kg Intake: IV 1000 / 1000 NS Inj 1,000 ML @ Wide Open IV. 1000 / 1000 SIG BOLUS ONE Rx#:[id number] Mental Status Examination Appearance: Appropriate Consciousness: Alert Orientation: x4 Motor Activity: Normal gait Language: Adequate Fund of Knowledge: Adequate Attention and Concentration: Adequate Memory: Unremarkable Mood: Appropriate Affect: Appropriate Thought Process & Associations: Intact Thought Content: Appropriate Hallucination Type: None Suicidal Ideation: No Suicidal Plan: No Suicidal Intention: No Homicidal Ideation: No Homicidal Plan: No Homicidal Intention: No Insight: Fair Judgment: Impulsive Assessment and Plan - Assessment (1) Schizoaffective disorder Code(s): F25.9 - Schizoaffective disorder, unspecified Status: Chronic - Plan Plan: Estimated LOS: [] days The patient does not meet criteria for involuntary psychiatric admission at this moment. Recent doubling of doses of Seroquel was done with the purpose of sleeping better at night and no suicide ideation. The patient was quite educated about the importance of taking the medication as prescribed, and she expressed understanding of this consult. She will continue discharge plan created through the psychiatric hospitalization for follow-up some prescriptions. Brief supportive psychotherapy, psychoeducation and motivation provided. No Admission is indicated. Justification for Continued Inpatient Stay: No admission is indicated (1) Schizoaffective disorder Qualifiers: Schizoaffective disorder type: bipolar Qualified Code(s): F25.0 - Schizoaffective disorder, bipolar type
--- NOTE | 2018-06-27 16:43 | ECG ---
Date Performed: 06/27/2018 Time Performed: 00:52:24 PTAGE: 67 years EKG: Sinus rhythm WITH SINUS ARRHYTHMIA INFERIOR MYOCARDIAL INFARCTION ABNORMAL ECG PREVIOUS TRACING : 04/22/2005 08.48 Since prior tracing, inferior myocardial Infarction is new. there is also loss of R wave in V3. Clinical correlation is recommended DOCTOR: Michael Aguilera Interpretating Date/Time 06/27/2018 16:42:23
--- NOTE | 2018-06-27 16:43 | ECG ---
Date Performed: 06/27/2018 Time Performed: 02:44:23 PTAGE: 67 years EKG: Sinus rhythm LOW QRS VOLTAGE IN PRECORDIAL LEADS MODERATE ST DEPRESSION ABNORMAL ECG PREVIOUS TRACING : 06/27/2018 00.52 Since prior tracing, inferior Q-wave and R-wave changes hav e normalized. DOCTOR: Michael Aguilera Interpretating Date/Time 06/27/2018 16:43:04
--- NOTE | 2018-06-27 16:45 | ECG ---
Date Performed: 06/27/2018 Time Performed: 04:56:13 PTAGE: 67 years EKG: Sinus rhythm LOW QRS VOLTAGE IN PRECORDIAL LEADS BORDERLINE ECG PREVIOUS TRACING : 06/27/2018 02.44 Loss of R-waves in anterior precordium is noted. This may b e due to lead placement. Clinical correlation is recommended DOCTOR: Michael Aguilera Interpretating Date/Time 06/27/2018 16:44:39
[2018-06-27] MEDS ORDERED: Senna/Docusate Sodium 8.6/50 MG Tablet PO SCH (21:00)
== END 2018-06-27 19:26 | disposition home or self-care (01) ==
LOC: NEPE 23:42 → NEPGCP 23:42 → NEDA 23:42 → NEPGCP 06-27 03:29
PROVIDERS: ADMIT Hospitalist; ATTEND Hospitalist
DX: Z85.51 Personal history of malignant neoplasm of bladder; R07.89 Other chest pain; Z79.899 Other long term (current) drug therapy; T50.901A Poisoning by unspecified drugs, medicaments and biological substances, accidental (unintentional), initial encounter; R00.2 Palpitations; Z77.22 Contact with and (suspected) exposure to environmental tobacco smoke (acute) (chronic); F25.0 Schizoaffective disorder, bipolar type; F41.9 Anxiety disorder, unspecified; R03.0 Elevated blood-pressure reading, without diagnosis of hypertension